=== PATIENT | female | born 1985 ===

== ENCOUNTER 2024-12-31 10:00 | Inpatient (IN) | payer OTHER ==
[~2024-12-31] VITALS: Ht 149.9 cm; Wt 47.2 kg
[2024-12-31 11:38] VITALS: BP 121/77
[2024-12-31 11:42] VITALS: BP 120/77
[2024-12-31 13:56] LABS: RH NEGATIVE
[2025-01-05] MEDS ORDERED: LIDOCAINE HCL 1%/EPINEPHRINE 20ML VIAL IJ ONE (12:45)
[2025-01-05] MEDS ORDERED: POVIDONE-IODINE 118 ML BOTT TOP ONE (12:45)
[2025-01-05] MEDS ORDERED: BUPIVACAINE HCL/MPF 0.5% 30ML VIAL ONE (12:45)
[2025-01-05] MEDS ORDERED: CHLORHEXIDINE GLUCONATE 120 ML BOTTLE TOP ONE (12:46)
[2025-01-05] MEDS ORDERED: CEFAZOLIN SODIUM 1,000 MG VIAL ONE ×2 (13:30→21:40)
[2025-01-05] MEDS ORDERED: ONDANSETRON HCL 2 MG/ML VIAL IV PRN (17:15)
[2025-01-05] MEDS ORDERED: MORPHINE SULFATE 4 MG/ML VIAL IV PRN (17:15)
[2025-01-05] MEDS ORDERED: RINGERS SOLUTION,LACTATED 1,000 ML IV SCH (17:15)
[2025-01-05] MEDS ORDERED: MORPHINE SULFATE 2 MG,MORPHINE SULFATE 4 MG IV PRN (17:45)
[2025-01-05] MEDS ORDERED: MORPHINE SULFATE 4 MG/ML VIAL IV ONE (18:00)
[2025-01-05] MEDS ORDERED: CEFAZOLIN SODIUM 1,000 MG VIAL IV SCH (20:00)
[2025-01-05 22:01] LABS: BASO % 0.2 % (0.1-1.2); EOS # 0.01 (0.04-0.54); EOS % 0.1 % (0.7-7.0); HEMATOCRIT 32.6 % (34.1-44.9); HEMOGLOBIN 11.3 g/dL (11.2-15.7); LYMPH # 2.01 (1.18-3.74); LYMPH % 15.7 % (19.3-53.1); MEAN CORPUSCULAR HEMOGLOBIN 27.2 pg (25.6-32.2); MONO # 0.56 (0.24-0.82); MONO % 4.4 % (4.7-12.5); NEUT # 10.13 (1.56-6.13); NEUT % 79.2 % (34.0-71.1); PLATELET COUNT 238 K/uL (163-369); RED BLOOD COUNT 4.15 M/uL (3.93-5.22); RED CELL DISTRIBUTION WIDTH 18.8 % (11.6-14.4)
[2025-01-05 23:26] VITALS: BP 121/77
[2025-01-06] MEDS ORDERED: IBU800 MG PO (07:02)
[2025-01-06] MEDS ORDERED: NEURONTIN300 MG PO (07:02)
[2025-01-06] MEDS ORDERED: GAS RELIEF125 M1 PO (07:03)
[2025-01-06 08:00] VITALS: BP 97/66
[2025-01-06] MEDS ORDERED: ENOXAPARIN SODIUM 40 MG/0.4 ML SYRINGE SUBCUTANEO SCH (09:00)
== END 2025-01-06 09:52 | disposition home or self-care (01) | DRG 743 ==
LOC: SURH 01-05 10:00 → O/R 01-05 13:15 → SURH 01-05 17:45 → OB/GYN 01-05 17:50
PROVIDERS: ADMIT Obstetrics & Gynecology Gynecology; ATTEND Obstetrics & Gynecology Gynecology
PROC: 0UT7FZZ Resection of Bilateral Fallopian Tubes, Via Natural or Artificial Opening With Percutaneous Endoscopic Assistance (ICD-10-PCS; 2025-01-05)
PROC: 0UT9FZZ Resection of Uterus, Via Natural or Artificial Opening With Percutaneous Endoscopic Assistance (ICD-10-PCS; principal; 2025-01-05 17:45)
DX: D25.1 Intramural leiomyoma of uterus (principal); D25.0 Submucous leiomyoma of uterus; N92.1 Excessive and frequent menstruation with irregular cycle; R10.2 Pelvic and perineal pain; N80.03 Adenomyosis of the uterus; N80.203 Endometriosis of bilateral fallopian tubes, unspecified depth